=== PATIENT | female | born 1945 | race Hispanic/Latino ===

== ENCOUNTER → 2022-08-18 | Day surgery (SDC) | payer MEDICARE ==
[~2022-08-18] MED LIST: ASPIRIN81 MG PO; ATORVASTATIN CA20 MG PO; CULTURELLE1 EACH; CYTRA-2 ORAL S473 ML; FENTANYL CITRATE/PF 100MCG/2 ML INJ ONE; FISH OIL 1,2001 EACH PO; LACTATED RINGER'S 1,000 ML ONE; LOSARTAN POTASS50 MG PO; MIDAZOLAM HCL 2 MG/2 ML VIAL ONE; MIRALAX17 GM PO; ONDANSETRON HCL INJ 2MG/ML 2ML 2 MG/ML VIAL ONE; OR PHACO EYE KIT ONE; POVIDONE IODINE 0.05% 0.05 % ML PO ONE; PREOP PHACO EYE KIT ONE
[2022-08-18 12:21] VITALS: TEMP 97
[2022-08-18 12:35] VITALS: BP 136/70; PULSE 59; RESP 17; O2SAT 99
== END | disposition home or self-care (01) ==
LOC: OR 08:22
PROVIDERS: ATTEND Ophthalmology
DX: H25.12 Age-related nuclear cataract, left eye (principal); I10 Essential (primary) hypertension; E78.5 Hyperlipidemia, unspecified; F17.210 Nicotine dependence, cigarettes, uncomplicated; Z79.82 Long term (current) use of aspirin; Z79.899 Other long term (current) drug therapy
CPT/HCPCS: 66984; J2250; J2405; J3010; J7121; V2788

== ENCOUNTER 2024-02-13 15:29 | Inpatient (IN) | payer MEDICARE ==
[~2024-02-13] VITALS: Ht 160 cm; Wt 90.3 kg
[~2024-02-13 15:29] MED LIST changes: -FENTANYL CITRATE/PF 100MCG/2 ML INJ ONE; -LACTATED RINGER'S 1,000 ML ONE; -MIDAZOLAM HCL 2 MG/2 ML VIAL ONE; -ONDANSETRON HCL INJ 2MG/ML 2ML 2 MG/ML VIAL ONE; -OR PHACO EYE KIT ONE; -POVIDONE IODINE 0.05% 0.05 % ML PO ONE; -PREOP PHACO EYE KIT ONE
[2024-02-13 17:01] LABS: BASOPHILS % 0.3 % (0.0-1.0); EOSINOPHILS # (AUTO) 0.3 (0.0-0.4); EOSINOPHILS % 2.9 % (0.0-6.0); HEMATOCRIT 38.9 % (34.2-44.1); HEMOGLOBIN 12.2 g/dL (12.0-16.0); LYMPHOCYTES # (AUTO) 0.6 (1.0-3.2); LYMPHOCYTES % 6.5 % (18.0-39.1); MEAN CORPUSCULAR HEMOGLOBIN 28.4 pg (28-32); MEAN CORPUSCULAR HGB CONC 31.4 g/dL (31-35); MEAN CORPUSCULAR VOLUME 90.5 fL (81-99); MONOCYTES # (AUTO) 0.8 (0.2-0.8); MONOCYTES % 8.2 % (4.4-11.3); NEUTROPHILS # (AUTO) 7.9 (2.1-6.9); NEUTROPHILS % 81.7 % (38.7-80.0); PLATELET COUNT 243 x10e3/uL (140-360); RED CELL DISTRIBUTION WIDTH 14.1 % (11.7-14.4); WHITE BLOOD COUNT 9.65 x10e3/uL (4.8-10.8)
[2024-02-13 17:17] LABS: STREPTOCOCCUS GRP A ANTIGEN NEGATIVE (NEGATIVE)
[2024-02-13 17:22] LABS: CORONAVIRUS COVID-19 AG NEGATIVE (NEGATIVE); INFLUENZA A AG NEGATIVE (NEGATIVE); INFLUENZA B AG NEGATIVE (NEGATIVE)
[2024-02-13 17:23] LABS: ALBUMIN 3.3 g/dL (3.5-5.0); ALBUMIN/GLOBULIN RATIO 0.6 (0.8-2.0); ANION GAP 17.1 mmol/L (8-16); BILIRUBIN,TOTAL 0.5 mg/dL (0.2-1.2); CALCIUM 9.8 mg/dL (8.4-10.2); CREATININE, SERUM 1.23 mg/dL (0.57-1.11); POTASSIUM 4.1 mmol/L (3.5-5.1); TOTAL PROTEIN 8.8 g/dL (6.5-8.1)
[2024-02-13 17:29] LABS: TROPONIN I 0.01 ng/mL (0-0.300)
[2024-02-13] MEDS ORDERED: ONDANSETRON HCL INJ 2MG/ML 2ML 2 MG/ML VIAL IV PRN ×2 (18:15→23:00)
[2024-02-13] MEDS ORDERED: Morphine 4mg INJECTION 4 MG/ML INJ IV PRN (18:15)
[2024-02-13] MEDS: SODIUM CHLORIDE 0.9% 1000ML 1,000 ML IV STA (18:30)
[2024-02-13] MEDS: SODIUM CHLORIDE 0.9% 1000ML 1,000 ML IV SCH (18:31)
[2024-02-13] MEDS: ACETAMINOPHEN 325 MG TAB PO STA (18:31)
[2024-02-13 19:20] VITALS: PULSE 78; RESP 18; O2SAT 99
[2024-02-13] MEDS ORDERED: BENZONATATE 100 MG CAP PO PRN (23:00)
[2024-02-13] MEDS ORDERED: POLYETHYLENE GLYCOL 3350 17 GM PACK PO PRN (23:15)
[2024-02-13] MEDS ORDERED: HYDRALAZINE HCL 20 MG/ML VIAL IV PRN (23:15)
[2024-02-14] VITALS (9 sets, daily range): BP systolic 126–134; BP diastolic 70–73; PULSE 66–81; RESP 18–20; TEMP 97.6–98.6; O2SAT 94–100
[2024-02-14] MEDS: ACETAMINOPHEN 325 MG TAB PO PRN (02:55)
[2024-02-14 03:02] LABS: BILIRUBIN,URINE NEGATIVE (NEGATIVE); CLARITY,URINE CLEAR (CLEAR); COLOR,URINE YELLOW (YELLOW); GLUCOSE, URINE NEGATIVE (NEGATIVE); KETONES,URINE NEGATIVE (NEGATIVE); LEUKOCYTE ESTERASE ,URINE TRACE (NEGATIVE); NITRITE,URINE POSITIVE (NEGATIVE); PH,URINE 6 (5 - 7); PROTEIN,URINE DIPSTICK TRACE (NEGATIVE); URINE UROBILINOGEN 0.2 mg/dL (0.2 - 1)
[2024-02-14 03:12] LABS: TROPONIN I 0.008 ng/mL (0-0.300)
[2024-02-14 03:51] LABS: BACTERIA,URINE MANY /HPF; EPITHELIAL CELLS,URINE FEW /LPF; RBC,URINE 0-5 /HPF (0-5)
[2024-02-14 05:22] LABS: BASOPHILS % 0.6 % (0.0-1.0); EOSINOPHILS # (AUTO) 0.5 (0.0-0.4); EOSINOPHILS % 7.7 % (0.0-6.0); HEMATOCRIT 30.9 % (34.2-44.1); LYMPHOCYTES # (AUTO) 0.7 (1.0-3.2); LYMPHOCYTES % 10.4 % (18.0-39.1); MEAN CORPUSCULAR HEMOGLOBIN 28.1 pg (28-32); MEAN CORPUSCULAR HGB CONC 32.4 g/dL (31-35); MEAN CORPUSCULAR VOLUME 86.8 fL (81-99); MONOCYTES # (AUTO) 0.6 (0.2-0.8); MONOCYTES % 8.4 % (4.4-11.3); NEUTROPHILS # (AUTO) 4.8 (2.1-6.9); NEUTROPHILS % 72.3 % (38.7-80.0); PLATELET COUNT 228 x10e3/uL (140-360); RED BLOOD COUNT 3.56 x10e6/uL (3.6-5.1); WHITE BLOOD COUNT 6.63 x10e3/uL (4.8-10.8)
[2024-02-14 05:43] LABS: ALBUMIN 2.6 g/dL (3.5-5.0); ALBUMIN/GLOBULIN RATIO 0.6 (0.8-2.0); ANION GAP 12.1 mmol/L (8-16); BILIRUBIN,TOTAL 0.5 mg/dL (0.2-1.2); CALCIUM 8.7 mg/dL (8.4-10.2); CREATININE, SERUM 1.09 mg/dL (0.57-1.11); POTASSIUM 4.1 mmol/L (3.5-5.1)
[2024-02-14] MEDS: ASPIRIN 81 MG CHEW TAB PO SCH (09:23)
[2024-02-14] MEDS ORDERED: POLYETHYLENE GLYCOL 3350 17 GM PACK PO PRN (09:45)
[2024-02-14] MEDS ORDERED: POLYETHYLENE GLYCOL 3350 17 GM PACK PO SCH (10:00)
[2024-02-14 11:03] LABS: TROPONIN I 0.011 ng/mL (0-0.300)
[2024-02-14] MEDS ORDERED: CLINDAMYCIN HC300 MG PO (12:00)
[2024-02-14] MEDS ORDERED: RIFAMPIN300 MG PO (12:00)
[2024-02-14] MEDS ORDERED: NITROFURANTOIN100 MG PO (12:00)
[2024-02-14] MEDS ORDERED: PHENAZOPYRIDIN100 MG PO (12:00)
[2024-02-14] MEDS ORDERED: probiotic PO (12:00)
[2024-02-14] MEDS ORDERED: LOSARTAN POTASS25 MG PO (12:02)
[2024-02-14] MEDS: ATORVASTATIN 20 MG TAB PO SCH (21:38)
[2024-02-15] VITALS (7 sets, daily range): BP systolic 113–148; BP diastolic 65–84; PULSE 68–86; RESP 18–20; TEMP 97.7–98.8; O2SAT 95–100
[2024-02-15] MEDS: MUPIROCIN 2% OINT 22 GM TUBE TOP SCH (10:53)
[2024-02-15] MEDS: LACTOBACILLUS ACIDOPHILUS CAPSULE PO SCH (16:30)
[2024-02-15] MEDS: ENOXAPARIN SOD INJ 40 MG/0.4 ML SYR SC SCH (16:30)
[2024-02-16 05:29] VITALS: BP 149/85; PULSE 65; RESP 18; TEMP 98.7; O2SAT 98
[2024-02-16] MEDS ORDERED: PANTOPRAZOLE SOD 40 MG TABEC PO SCH (07:30)
[2024-02-16 08:12] VITALS: BP 145/85; PULSE 83; RESP 18; TEMP 98.6; O2SAT 100
== END 2024-02-16 08:50 | disposition home or self-care (01) | DRG 607 ==
LOC: ER 16:49 → ERHOLD 18:04 → MED/SURG 02-14 06:22
PROVIDERS: ADMIT Internal Medicine; ATTEND Internal Medicine
DX: L73.2 Hidradenitis suppurativa (principal); M62.82 Rhabdomyolysis; E87.1 Hypo-osmolality and hyponatremia; N39.0 Urinary tract infection, site not specified; R55 Syncope and collapse; R53.81 Other malaise; E86.0 Dehydration; E66.01 Morbid (severe) obesity due to excess calories; Z68.35 Body mass index [BMI] 35.0-35.9, adult; Z11.52 Encounter for screening for COVID-19; Z79.82 Long term (current) use of aspirin
CPT/HCPCS: 36415; 70450; 71045; 71250; 74176; 80053; 81001; 82140; 82550; 83518; 83605; 83690; 83880; 84484; 85025; 87040; 87070; 87086; 93005; 93306; 94799; 99252; 99284; J1650; J2543; J7030